=== PATIENT | female | born 1980 ===

== ENCOUNTER → 2020-01-11 | Outpatient (CLI) | payer BC ==
[~2020-01-11] MED LIST: IBUP-1223 PO; MULT-464 PO; OXYC-302 PO
== END | disposition home or self-care (01) ==
LOC: CFH 07:48 → MERGE 07:48
PROVIDERS: ATTEND Obstetrics & Gynecology Maternal & Fetal Medicine
DX: Z12.31 Encounter for screening mammogram for malignant neoplasm of breast (principal)
CPT/HCPCS: 76641; 77063; 77067